=== PATIENT | female | born 1955 ===

== ENCOUNTER 2021-05-22 06:09 | Inpatient (IN) | payer OTHER ==
[~2021-05-22] VITALS: Ht 160 cm; Wt 54.4 kg
[~2021-05-22 06:09] MED LIST: DOLOGESIC CAPSU1 CAP PO; ORPH100T PO
[2021-05-22] MEDS ORDERED: LISINOPRIL10 MG (06:27)
== END 2021-05-25 15:52 | disposition home or self-care (01) | DRG 343 ==
LOC: ER 06:09 → SEC-K 14:58 → SURH 14:58
PROVIDERS: ADMIT Surgery; ATTEND Surgery
PROC: 0DTJ4ZZ Resection of Appendix, Percutaneous Endoscopic Approach (ICD-10-PCS; principal; 2021-05-22 17:00)
DX: K35.890 Other acute appendicitis without perforation or gangrene (principal); Z20.822 Contact with and (suspected) exposure to COVID-19; I10 Essential (primary) hypertension

== ENCOUNTER 2021-05-27 19:12 | Inpatient (IN) | payer OTHER ==
[~2021-05-27] VITALS: Ht 160 cm; Wt 54.4 kg
[~2021-05-27 19:12] MED LIST changes: +LISINOPRIL10 MG
== END 2021-06-05 19:26 | disposition home or self-care (01) | DRG 862 ==
LOC: ER 19:12 → SURG 05-28 01:42
PROVIDERS: ADMIT Surgery; ATTEND Surgery
PROC: 0W9G30Z Drainage of Peritoneal Cavity with Drainage Device, Percutaneous Approach (ICD-10-PCS; principal; 2021-05-28)
DX: T81.43XA Infection following a procedure, organ and space surgical site, initial encounter (principal); K65.1 Peritoneal abscess; I10 Essential (primary) hypertension

== ENCOUNTER 2021-08-17 09:58 | Outpatient (CLI) | payer OTHER | END 2021-08-17 14:34 | disposition home or self-care (01) | LOC: MAMO-SONO 09:58 | PROVIDERS: ATTEND Specialist | DX: N64.59 Other signs and symptoms in breast (principal); Z12.31 Encounter for screening mammogram for malignant neoplasm of breast ==

== ENCOUNTER 2021-10-28 08:00 | Outpatient (CLI) | payer OTHER | END 2021-10-28 08:30 | disposition home or self-care (01) | LOC: PPH VACUNA 08:00 | PROVIDERS: ATTEND Emergency Medicine Pediatric Emergency Medicine | DX: Z23 Encounter for immunization (principal) ==

== ENCOUNTER 2021-12-22 10:01 | Outpatient (CLI) | payer OTHER | END 2021-12-22 10:02 | disposition home or self-care (01) | LOC: RAD 10:01 | PROVIDERS: ATTEND Specialist | DX: J45.998 Other asthma (principal) ==

== ENCOUNTER 2023-08-29 09:07 | Outpatient (CLI) | payer OTHER | END 2023-08-29 09:09 | disposition home or self-care (01) | LOC: MAMO-SONO 09:07 | PROVIDERS: ATTEND Specialist | DX: J45.991 Cough variant asthma (principal); Z12.39 Encounter for other screening for malignant neoplasm of breast; N60.39 Fibrosclerosis of unspecified breast; Z12.31 Encounter for screening mammogram for malignant neoplasm of breast ==

== ENCOUNTER 2023-09-06 13:28 | Outpatient (CLI) | payer OTHER | END 2023-09-06 13:33 | disposition home or self-care (01) | LOC: NUCLEAR 13:28 | PROVIDERS: ATTEND Specialist | DX: M81.0 Age-related osteoporosis without current pathological fracture (principal); Z13.820 Encounter for screening for osteoporosis ==

== ENCOUNTER 2024-05-16 13:32 | Outpatient (CLI) | payer OTHER | END 2024-05-16 13:36 | disposition home or self-care (01) | LOC: RAD 13:32 | PROVIDERS: ATTEND Specialist | DX: S62.90XA Unspecified fracture of unspecified hand, initial encounter for closed fracture (principal) ==

== ENCOUNTER 2024-06-06 08:36 | Outpatient (CLI) | payer OTHER | END 2024-06-06 08:41 | disposition home or self-care (01) | LOC: SONOGRAMA 08:36 | PROVIDERS: ATTEND Specialist | DX: G56.01 Carpal tunnel syndrome, right upper limb (principal) ==

== ENCOUNTER 2024-12-26 07:24 | Outpatient (CLI) | payer OTHER | END 2024-12-26 07:28 | disposition home or self-care (01) | LOC: TOM 07:24 | PROVIDERS: ATTEND Specialist | DX: J47.9 Bronchiectasis, uncomplicated (principal) ==

== ENCOUNTER 2025-03-04 12:06 | Outpatient (CLI) | payer OTHER | END 2025-03-04 12:10 | disposition home or self-care (01) | LOC: RAD 12:06 | PROVIDERS: ATTEND Specialist | DX: S22.31XA Fracture of one rib, right side, initial encounter for closed fracture (principal); S22.49XA Multiple fractures of ribs, unspecified side, initial encounter for closed fracture ==